=== PATIENT | male | born 1960 | race Caucasian/White ===

== ENCOUNTER 2022-12-18 09:07 | Outpatient (CLI) | payer OTHER, SELFPAY ==
[2022-12-18 14:01] LABS: Basophils Absolute Auto 0.03 K/uL (0.00-0.30); Basophils Percent Auto 0.6 % (0.0-3.0); Eosinophils Absolute Auto 0.15 K/uL (0.00-0.50); Hematocrit 48.3 % (37.0-53.0); Hemoglobin* 16.4 gm/dL (13.5-17.5); Lymphocytes Absolute Auto 1.65 K/uL (0.90-2.90); Lymphocytes Percent Auto 32.5 % (20-44); Mean Corpuscular HGB Conc 34 gm/dL (32-36); Mean Corpuscular Hemoglobin 30 pg (26-34); Mean Corpuscular Volume 88 fL (80-100); Monocytes Percent Auto 9.7 % (0.0-11.0); Neutrophils Absolute Auto 2.75 K/uL (1.7-7.0); Neutrophils Percent Auto 54.2 % (42.0-72.0); Platelet Count* 215 K/uL (140-440); RDW Coefficient of Variation % 13.1 % (11.5-15.5); White Blood Count* 5.07 K/uL (4.50-11.00)
[2022-12-18 14:06] LABS: Slide Review Reflex No
[2022-12-18 14:19] LABS: Chloride* 107 mmol/L (96-114); Potassium* 5.5 mmol/L (3.6-5.1); Sodium* 141 mmol/L (135-149)
[2022-12-18 14:22] LABS: Blood Urea Nitrogen* 17 mg/dL (7-30); Carbon Dioxide* 29 mmol/L (20-32); Cholesterol* 258 mg/dL (90-199); Creatinine* 1.1 mg/dL (0.5-1.5); Estimated Glomerular Filt Rate 77 ml/min; Glucose* 100 mg/dL (60-115)
[2022-12-18 14:23] LABS: Calcium* 9.5 mg/dL (8.4-10.6); HDL Cholesterol* 60 mg/dL (>=40); LDL Cholesterol Calculated 168 mg/dL (<100); Triglycerides* 149 mg/dL (40-149)
[2022-12-18 14:53] LABS: PSA Screen* 3.73 ng/mL (0.10-4.00)
== END 2022-12-18 09:08 | disposition home or self-care (01) ==
PROVIDERS: PCP Family Medicine; Visit Provider Family Medicine
DX: Z00.00 Encounter for general adult medical examination without abnormal findings (principal); Z12.5 Encounter for screening for malignant neoplasm of prostate; Z13.6 Encounter for screening for cardiovascular disorders
CPT/HCPCS: 80048; 80061; 84153; 85025

== ENCOUNTER 2023-11-28 07:11 | Outpatient (CLI) | payer OTHER, SELFPAY ==
--- NOTE | 2023-11-28 07:52 | W.ANESCHARGE ---
Anesthesia Charges Start Date/Time Anesthesia Start Date: 11/28/23 Anesthesia Start Time: 08:00 Stop Date/Time Anesthesia Stop Date: 11/28/23 Anesthesia Stop Time: 08:39
--- NOTE | 2023-11-28 08:44 | W.ANESCHARGE ---
Anesthesia Charges Start Date/Time Anesthesia Start Date: 11/28/23 Anesthesia Start Time: 08:00 Stop Date/Time Anesthesia Stop Date: 11/28/23 Anesthesia Stop Time: 08:39
== END 2023-11-28 07:12 | disposition home or self-care (01) ==
LOC: OP CLINIC 07:12
PROVIDERS: PCP Family Medicine; Visit Provider Surgery
DX: Z12.11 Encounter for screening for malignant neoplasm of colon (principal); K63.5 Polyp of colon; Z86.010 Personal history of colon polyps
CPT/HCPCS: 00811; 45385; 88305; J2704

== ENCOUNTER 2024-01-16 10:00 | Outpatient (CLI) | payer OTHER, SELFPAY | END 2024-01-16 10:01 | disposition home or self-care (01) | PROVIDERS: PCP Family Medicine; Visit Provider Family Medicine | DX: Z12.5 Encounter for screening for malignant neoplasm of prostate (principal); R53.83 Other fatigue | CPT/HCPCS: 80048; 80061; G0103 ==

== ENCOUNTER 2024-03-11 08:50 | Outpatient (CLI) | payer OTHER, SELFPAY | END 2024-03-11 08:51 | disposition home or self-care (01) | LOC: NFLDREF 03-13 11:00 | PROVIDERS: PCP Family Medicine; Referring Provider Family Medicine; Visit Provider Family Medicine | DX: R97.20 Elevated prostate specific antigen [PSA] (principal); Z12.5 Encounter for screening for malignant neoplasm of prostate | CPT/HCPCS: 84153 ==

== ENCOUNTER 2024-09-07 12:23 | Outpatient (REF) | payer OTHER, SELFPAY ==
--- OUTSIDE RECORDS SUMMARY | 2024-09-07 12:25 | XMS_ITS | Clinical Summary ---
Author Organization [facility] Address [address], [place] [address] Care Team Providers Care Pasteuriser Operator Name Role Phone Jose Bello MD Primary Care Provider [phone] Source Comments You are receiving this document as you are listed as the primary care provider,follow-up provider, or the patient has been referred to you for consultation.This is in compliance with the Medicare and[facility] EHR Incentive Program,which states Providers who transition their patient to another setting of careor provider of care or refers their patient to another provider of care shouldprovide summary care record for each transition of care or referral. Physicians Formula Allergies No known active allergies Medications Medication Sig Dispensed Refills Start Date End Date Status omega-3 fatty acids (FISH OIL) 1000 MG capsule Take 1 capsule by mouth daily (every 24 hours). 03/31/2012 Active aspirin EC 81 MG enteric coated tablet Take 1 tablet by mouth daily (every 24 hours). 100 tablet 3 06/15/2013 Active cholecalciferol (VITAMIND3) 50 MCG (2000 UT) tablet Take 2,000 Units by mouth daily. 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 Resolved Problems Problem Noted Date Diagnosed Date Resolved Date Sprain of ankle 05/05/2012 04/19/2014 Overview (07/03/2017): Sprain of ankle, unspecified site Immunizations Name Administration Dates Next Due Flu Vac (3+ yrs) 08/04/2014, 3,08/05/2012,2010 Flu Vac Preserv Free (3+yrs) 08/24/2009 Fluzone Qiv Multidose Vial 0 .25 (6-35 Mos) 08/19/2019,08/05/2018,08/07/2017,2014 [id number] 12/06/2009 Influenza IIV4 (Quadrivalent ) 0.5mL ([id number]) 08/03/2020 Influenza, Unspecified Formulation 08/05/2018 Pfizer Monovalent 12+ Purple Top 02/18/2021,01/10 TDAP (ADACEL) 11/15/2007 Tdap 06/06/2018 Family History Medical History Relation Name Comments Alcohol/Drug Abuse Father Tommy Early Father Tommy Arthritis Mother Bernsakina Cancer Mother Paola Breast Depression Mother Paola Diabetes Mother Bernsakina Early Brother Yogesh Stroke Maternal Grandfather Harvey Kidney/Bladder Disease Maternal Uncle Raymundo Relation Name Status Comments Father Tommy Mother Bernsakina Alive Brother Yogesh Maternal Grandfather [place] Maternal Uncle Raymundo Social History Tobacco Use Types Packs/Day Years Used Date Smoking Tobacco: Former Cigarettes 0.5 10 Cigars Smokeless Tobacco: Never Comments:quit smoking cigs 2 5 years ago Alcohol Use Standard Drinks/Week Comments Not Currently 0 (1 standard drink = 0.6 oz pur e alcohol) rarely PHQ-2 Answer Date Recorded PHQ-2 Score 0 02/22/2021 Sex and Gender Information Value Date Recorded Sex Assigned at Not on file Gender Identity Not on file Sexual Orientation Not on file Last Filed Vital Signs Vital Sign Reading Time Taken Comments Blood Pressure 146/83 02/22/2021 9:18 AM CDT 1st 141/85, 2nd 151/81 Pulse 53 02/22/2021 9:18 AM CDT Temperature 36.5 ??C (97.7 ??F) 02/09/2019 8 :14 AM CDT Respiratory Rate 18 02/09/2019 8:14 AM CDT Oxygen Saturation 98% 02/09/2019 8:1 4 AM CDT Inhaled Oxygen Concentration - - Weight 89.1 kg (196 lb 8 oz) 02/22/2021 9:06 AM CDT Height 176.5 cm (5' 9.5) 02/22/2021 9: 06 AM CDT Body Mass Index 28.6 02/22/2021 9:06 AM CDT Plan of Treatment Health Maintenance Due Date Last Done Comments HIV Screening (Preventive Services) 1978 Zoster/Shingles (1 of 2) 2012 Adult Preventive Visit 02/22/2022 02/22/2021, 2017 PSA Screening Discussion 02/22/2022 021, 06/11/2018, 09/21/2016, Additional history exists Colonoscopy 10/24/2023 10/24/2018, 08/12 (Completed) COVID-19 Vaccine (3 - 2023- season) 2024 02/18/2021, 01/28/2021 Influenza (#1) 2024 08/03/2020, 07/2019, 08/05/2018, Additional history exists Cholesterol 02/22/2026 02/22/2021, 11/2017, 06/04/2016, Additional history exists DTaP/Tdap/Td (3 - Tdap) 06/06/2028 06/06/2018, 11/15 RSV (1 - 1-dose 75+ series) 2037 Hep C Screening (Preventive Services) Completed 06/15/2013 HepA Aged Out No longer eligi ble based on patient's age to complete this topic HepB Aged Out No longer eligi ble based on patient's age to complete this topic Hib Aged Out No longer eligi ble based on patient's age to complete this topic IPV (Polio) Aged Out No longer eligi ble based on patient's age to complete this topic RSV Aged Out No longer eligi ble based on patient's age to complete this topic MCV4 Aged Out No longer eligi ble based on patient's age to complete this topic Pneumococcal Aged Out No longer eligi ble based on patient's age to complete this topic Procedures Procedure Name Priority Date/Time Associated Diagnosis Comments PROSTATIC SPECIFIC ANTIGEN(SCREEN) Routine 02/22/2021 10:01 AM CDT Annual physical exam LIPID PANEL & DIRECT LDL (IF NEEDED) Routine 02/22/2021 10:01 AM CDT Annual physical exam ENDOSCOPY, COLON, SCREENING/DIAGNOSTI C Routine 10/24/2018 1:47 PM METAL FABRICATOR HELPER Annual physical exam HEPATITIS C ANTIBODY, WITH REFLEX Routine 06/15/2013 9:26 AM CDT Annual physical exam from Last 3 Months or Most Recently Relevant to Health Maintenance Results * (ABNORMAL) Lipid Panel and Direct LDL(If Needed) (02/22/2021 10:01 AM CDT) Cholesterol 230(H) 0 - 199 mg/dL 02/22/2021 10:35 AM [facility] Triglyceride 121 <=149 mg/dL 02/22/2021 10:35 AM [facility] HDL Cholesterol 55 >=40 mg/dL 10:35 AM [facility] LDL, Calculated 151(H) <130 mg/dL 10:35 AM [facility] Non HDL Chol, Calculated 175 mg/dL 02/22/2021 10:35 AM [facility] Cholesterol/HDL Ratio 4.2 02/22/2021 10:35 AM [facility] Hours Fasting 15 02/22/2021 10:35 AM [facility] Blood Venipuncture / Unknown 02/22/2021 10:01 AM CDT 02/22/2021 10:01 AM CDT Jose Bello MD [facility] [address] [place] [address], [facility] [phone] * Prostatic Specific Antigen (Screen) (02/22/2021 10:01 AM CDT) Prostatic Specific Antigen 3.7 0.0 - 4.0 ng/mL 02/22/2021 1:04 PM CDT [facility] Blood Venipuncture / Unknown 02/22/2021 10:01 AM CDT 02/22/2021 10:01 AM CDT Narrative [facility] - 02/22/2021 1:04 PM CDT The Henry PSA Chemiluminescent immunoassay is used. Results obtained with different test methods or kits cannot be used interchangeably. Jose Bello MD [facility] [address] * Colonoscopy (10/24/2018 1:47 PM METAL FABRICATOR HELPER) Anatomical Region Laterality Modality Other 10/24/2018 1:47 PM METAL FABRICATOR HELPER Narrative 10/24/2018 1:47 PM METAL FABRICATOR HELPER Patient Name: Augusto Waddell Procedure Date: 10/24/2018 1:47 PM Date of : 1960 Admit Type: Outpatient Age: 58 Gender: Male Note Status: Finalized Attending MD: May Killian MD Procedure: ? Colonoscopy Indications: ? High risk colon cancer surveillance: ? Personal history of non-advanced ? adenoma, Last colonoscopy: August ? 2013 Providers: ? May Killian MD, Janell Tsai RN Referring MD: ?Jose Bello MD Medicines: ? Midazolam 3 mg IV, Fentanyl 150 ? micrograms IV, O2 2 l/min per NC and ? CO2 for insufflation Complications: ? No immediate complications. Estimated ? blood loss: Minimal. Procedure: ? After I obtained informed consent, ? the scope was passed under direct ? vision. Throughout the procedure, the ? patient's blood pressure, pulse, and ? oxygen saturations were monitored ? continuously. The [id number] was ? introduced through the anus and ? advanced to the terminal ileum, with ? identification of the appendiceal ? orifice and IC valve. The colonoscopy ? was performed without difficulty. The ? patient tolerated the procedure well. ? The quality of the bowel preparation ? was excellent. Findings: ? The perianal and digital rectal examinations were ? normal. ? A 4 mm polyp was found in the distal transverse ? colon. The polyp was sessile. The polyp was removed ? with a cold biopsy forceps. Resection and retrieval ? were complete. Verification of patient identification ? for the specimen was done by the physician and nurse ? using the patient's name and date. Estimated ? blood loss was minimal. ? The exam was otherwise normal throughout the examined ? colon. ? The terminal ileum appeared normal. ? The retroflexed view of the distal rectum and anal ? verge was normal and showed no anal or rectal ? abnormalities. Impression: ?- One 4 mm polyp in the distal ? transverse colon, removed with a cold ? biopsy forceps. Resected and ? retrieved. ? - The examined portion of the ileum ? was normal. ? - The distal rectum and anal verge ? are normal on retroflexion view. Recommendation: ?- Await pathology results. ? - Return to referring physician PRN. Procedure Code(s): ?? --- Professional --- ? 70861, Colonoscopy, flexible; with ? biopsy, single or multiple Diagnosis Code(s): ?? --- Professional --- ? Z86.010, Personal history of colonic ? polyps ? D12.3, Benign neoplasm of transverse ? colon (hepatic flexure or splenic ? flexure) CPT copyright 2016 [employer]. All rights reserved. The codes documented in this report are preliminary and upon satellite communications operator review may be revised to meet current compliance requirements. May Killian MD 10/24/2018 2:22:20 PM This document has been electronically signed. Number of Addenda: 0 Note Initiated On: 10/24/2018 1:47 PM ? Endoscopy Report Procedure Note May Killian MD - 10/24/2018 Patient Name: Augusto Waddell Procedure Date: 10/24/2018 1:47 PM Date of : 1960 Admit Type: Outpatient Age: 58 Gender: Male Note Status: Finalized Attending MD: May Killian MD Procedure: Colonoscopy Indications: High risk colon cancer surveillance: Personal history of non-advanced adenoma, Last colonoscopy: August 2013 Providers: May Killian MD, Janell Tsai RN Referring MD: Jose Bello MD Medicines: Midazolam 3 mg IV, Fentanyl 150 micrograms IV, O2 2 l/min per NC and CO2 for insufflation Complications: No immediate complications. Estimated blood loss: Minimal. Procedure: After I obtained informed consent, the scope was passed under direct vision. Throughout the procedure, the patient's blood pressure, pulse, and oxygen saturations were monitored continuously. The [id number] was introduced through the anus and advanced to the terminal ileum, with identification of the appendiceal orifice and IC valve. The colonoscopy was performed without difficulty. The patient tolerated the procedure well. The quality of the bowel preparation was excellent. Findings: The perianal and digital rectal examinations were normal. A 4 mm polyp was found in the distal transverse colon. The polyp was sessile. The polyp was removed with a cold biopsy forceps. Resection and retrieval were complete. Verification of patient identification for the specimen was done by the physician and nurse using the patient's name and date. Estimated blood loss was minimal. The exam was otherwise normal throughout the examined colon. The terminal ileum appeared normal. The retroflexed view of the distal rectum and anal verge was normal and showed no anal or rectal abnormalities. Impression: - One 4 mm polyp in the distal transverse colon, removed with a cold biopsy forceps. Resected and retrieved. - The examined portion of the ileum was normal. - The distal rectum and anal verge are normal on retroflexion view. Recommendation: - Await pathology results. - Return to referring physician PRN. Procedure Code(s): --- Professional --- 03416, Colonoscopy, flexible; with biopsy, single or multiple Diagnosis Code(s): --- Professional --- Z86.010, Personal history of colonic polyps D12.3, Benign neoplasm of transverse colon (hepatic flexure or splenic flexure) CPT copyright 2016 [employer]. All rights reserved. The codes documented in this report are preliminary and upon satellite communications operator review may be revised to meet current compliance requirements. May Killian MD 10/24/2018 2:22:20 PM This document has been electronically signed. Number of Addenda: 0 Note Initiated On: 10/24/2018 1:47 PM Endoscopy Report Jose Bello MD [facility] PROCEDURE ORDE BEL * Hepatitis C Antibody, with Reflex (06/15/2013 9:26 AM CDT) Hepatitis C Antibody Non-React Non-Reacti ve HP CONVERSION 06/15/2013 9:26 AM CDT 06/15/2013 11:53 AM CDT Jose Bello MD LAB_1 HP CONVERSION from Last 3 Months or Most Recently Relevant to Health Maintenance Care Teams Pasteuriser Operator Relationship Specialty [place] [address] [place], [place] [address] [facility] - General 02/13/11
--- OUTSIDE RECORDS SUMMARY | 2024-09-07 12:25 | XMS_ITS | Data Portability ---
Author Organization [facility], [facility] Address [address] [place] [address] Care Team Providers Care Call Box Wirer Name Role Phone NICOLE VALE Primary Care Provider Assessment No assessment recorded. Plan of Treatment Reminders Order Date Submit Date Provider Last Modified By Organization Details Last Modified Time Details Appointments ESTABLISH ED 10 2023 08:40A M Jose Atkins MD Not available Not available Not available Lab None recorded. Referral None recorded. Procedures None recorded. Surgeries None recorded. Imaging MRI, prostate, w/wo contrast 2023 024 [facility] [place] [address] [place], [address], 05/12/2024 13:23:02 Medication Orders None recorded. Patient TargetsNo targets recorded. Patient InstructionsNo instructions recorded. Reason for Referral None Reported. Results Created Date Observation Date Name Description Value Unit Range Abnormal Flag Note LastModifiedBy Organization Detail LastModifiedTime 05/12/20 24 05/11/2024 MRI, prost ate, w/wo contr ast No observ ation record ed. [facility] [place] [address], [address], 05/13/2024 14:27:58 Result Notes None recorded. Problems Name Problem SNOMED Code Status Onset Date Resolution Date Notes Provider Name and Address Organization Details Recorded Time Prostate specific antigen above reference range 289018210 Active 024 Jose Atkins MD [address] [address], [place], [address], [place] [facility] 14:08:08 Problem Notes None recorded. Procedures Surgical History Date Name Laterality Status Provider Name and Address Organization Details Recorded Time Colonoscopy completed Luciano Miles [facility] 04/29/2024 13:58:41 Appendectomy completed Luciano Miles [facility] 04/29/2024 13:58:22 Vasectomy completed Luciano Miles [facility] 04/29/2024 13:58:46 Imaging Results Imaging Date Name Status LastModified by Organiz ation Details LastModified Time 05/11/2024 MRI, prostate, w/wo contrast completed [facility] [place] [address], [place], [address], 05/13/2024 14:27:58 Procedure Notes None recorded. Medical Equipment None Reported. Allergies No known drug allergies Medications Name Sig Start Date Stop Date Status Note LastModified by Organization Details LastModified Time GaviLyte-G 236 gram-22.74 gram-6.74 gram-5.86 gram oral solution 4pm day prior to procedure. Drink 8oz glass every 15 min until 1/2 of solution is gone. 6 hours prior to procedure drink 8 oz glass every 15 min until remainDER GONE* 04/29 completed Not Available Not Available Not Available Vitals Date Recorded Body height Body mass index (BMI) Body weight Provider Name and Address Organization Details Last Updated DateTime 04/29/2024 177.8 cm 28 kg/m2 72835.51 g Luciano Miles [facility] 04/29/2024 13:56:25 Social History Question Answer Notes LastModified by Organizat ion Details LastModified Time Tobacco Smoking Status Former Smoker Luciano thomas [facility] 04/29/2024 13:58:10 What Is Your Level Of Alcohol Consumption? None Information not available 04/29/2024 What Is Your Level Of Caffeine Consumption? Occasional Information not available 04/29/2024 When Did You Quit Smoking? 16+yearssincel astcigarette Information not available 04/29/2024 What Was The Date Of Your Most Recent Tobacco Screening? 04/29/2024 Information not available 04/29/2024 Do You Use Any Illicit Or Recreational Drugs? No Information not available 04/29/2024 Has Tobacco Cessation Counseling Been Provided? No Information not available 04/29/2024 Do You Or Have You Ever Used Any Other Forms Of Tobacco Or Nicotine? No Information not available 04/29/2024 Sex: Unknown Functional Status None recorded. Mental Status None recorded. Family History Relationship Description Onset Age of this Age Resolved Age Notes LastModified by Organization Details LastModified Time Maternal Grandfather Family history of malignant neoplasm of prostate dsieracki Not available 2023 13:57:32 Maternal Uncle Family history of malignant neoplasm of prostate dsieracki Not available 2023 13:57:17 Mother Family history of breast cancer Kidney cancer dsieracki Not available 04/29/2024 13:57:48 Medical History Condition Response Other N High Blood Pressure N Kidney Stones N Lung Disease N Depression N GERD/Acid Reflux N Sexually Transmitted Infection N Cancer N High Cholesterol N Diabetes N Bleeding Disorder N Heart Disease N Immunizations Vaccine Type Date Status Provider Name and Address Organization Details Recorded Time Influenza, split virus, quadrivalent, preservative [facility]05/2018 [facility] 13:56:31 Influenza, split virus, quadrivalent, preservative 08/07/2017 [facility] 13:56:31 Influenza, split virus, quadrivalent, preservative 08/09/2015 [facility] 13:56:31 Influenza, split virus, quadrivalent, preservative 08/19/2019 [facility] 13:56:31 Influenza, MDCK, quadrivalent, PF 09/05/2022 completed Luciano thomas [facility] 04/29/2024 13:56:31 Influenza, MDCK, quadrivalent, PF 09/10/2023 completed Dezera Sieracki null, [facility] 04/29/2024 13:56:31 zoster recombinant 11/28/2021 completed Dezera Sieracki null, [facility] 04/29/2024 13:56:31 zoster recombinant 08/25/2021 completed Dezera Sieracki null, [facility] 04/29/2024 13:56:31 COVID-19, mRNA, LNP-S, PF, 100 mcg/0.5mL dose or 50 mcg/0.25mL dose 10/18/2021 completed Dezera Sieracki null, [facility] 04/29/2024 13:56:31 COVID-19, mRNA, LNP-S, PF, 30 mcg/0.3 mL dose 01/28/2021 completed Dezera Sieracki null, [facility] 04/29/2024 13:56:31 COVID-19, mRNA, LNP-S, PF, 30 mcg/0.3 mL dose 02/18/2021 completed Dezera Sieracki null, [facility] 04/29/2024 13:56:31 COVID-19, mRNA, LNP-S, bivalent, PF, 50 mcg/0.5 mL or 25mcg/0.25 mL dose 09/05/2022 completed Dezera Sieracki null, [facility] 04/29/2024 13:56:31 COVID-19, mRNA, LNP-S, PF, ana paula-sucrose, 30 mcg/0.3 mL 09/26/2023 completed Dezera Sieracki null, [facility] 04/29/2024 13:56:31 Tdap 11/15/2007 completed Dezera Sieracki null, [facility] 04/29/2024 13:56:31 Tdap 06/06/2018 completed Dezera Sieracki null, [facility] 04/29/2024 13:56:31 Novel Islhwwhbq-H8N6-31, all formulations 12/06/2009 completed Dezera Sieracki null, [facility] 04/29/2024 13:56:31 Influenza, split virus, trivalent, preservative 07/30/2013 completed Dezera Sieracki null, [facility] 04/29/2024 13:56:31 Influenza, split virus, trivalent, preservative 08/04/2014 completed Dezera Sieracki null, [facility] 04/29/2024 13:56:31 Influenza, split virus, trivalent, preservative 08/05/2012 completed Dezera Sieracki null, [facility] 04/29/2024 13:56:31 Influenza, split virus, trivalent, preservative 09/05/2011 completed Dezera Sieracki null, [facility] 04/29/2024 13:56:31 Influenza, split virus, trivalent, PF 08/24/2009 completed Dezera Sieracki null, [facility] 04/29/2024 13:56:31 Influenza, split virus, quadrivalent, PF 12/06/2009 completed Dezera Sieracki null, [facility] 04/29/2024 13:56:31 Influenza, split virus, quadrivalent, PF 08/03/2020 completed Dezera Sieracki null, [facility] 04/29/2024 13:56:31 Influenza, split virus, quadrivalent, PF 08/25/2021 completed Dezera Sieracki null, [facility] 04/29/2024 13:56:31 Past Encounters Encounter ID Performer Location Encounter Start Date Encounter Closed Date Diagnosis/Indication Diagnosis SNOMED-CT Code Diagnosis ICD10 Code [id number] Jose Atkins MD [facility] [address] [place] [address] 04/29/2024 13:51:29 05/13/2024 07:55:03 Prostate specific antigen above reference range [id number] R97.20 Health Concerns Section Related Observation LastModified by Organization Detai ls LastModified Time None Recorded Concern Status LastModified by Organization Details LastModified Time None Recorded Advance Directives Directive None Recorded Payers Encounter Date Sequence Insurance Name Policy Number Policy Alegria Covered Member ID Alegria Member ID Guarantor Name 04/29/2024 1 [employer] - INDIVIDUAL AND FAMILY (O) Augusto Waddell [id number] Augusto Waddell Notes Date Note Type Note Provider Name and Address Organization Details Recorded Time 04/29/2024 text/html HPI Notes: New patient referred for elevated PSA. I reviewed the most recent clinic notes from Dr. Nicole with [facility] dated 01/16/2024. PSA at that time was 5.11. Recheck PSA on 03/11/2024 was 5.46. He has a family history of prostate cancer in his maternal grandfather and maternal uncle. He reports that he had an elevated PSA of around 5 approximately 6 years ago and then this normalized on recheck. He has no bothersome urinary symptoms. Only abdominal surgery was appendectomy at age 19. Denies erectile dysfunction. AUA symptom score 7, bother 1. Jose Atkins MD [address], [place], [address], [facility] 04/29/2024 14:37:43
[2024-09-09 04:10] LABS: Prostate Specific Antigen Free 0.8 ng/mL; Prostate Specific Antigen%Free 21 %; Prostate Specific AntigenTotal 3.8 ng/mL (0.0-4.0)
== END 2024-09-07 12:24 | disposition home or self-care (01) ==
LOC: NPINS 12:23
PROVIDERS: PCP Family Medicine; Visit Provider Urology
DX: R97.20 Elevated prostate specific antigen [PSA] (principal)
CPT/HCPCS: 84153; 84154